=== PATIENT | male | born 1990 | race Caucasian/White ===

== ENCOUNTER 2022-04-29 13:13 | Emergency (ER) | payer SELFPAY ==
--- NOTE | 2022-04-29 13:36 | ECG_ITS ---
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 Measurements Intervals [place] Rate: 109 P: 18 HI: 119 QRS: 11 QRSD: 80 T: 30 QT: 311 QTc: 420 Interpretive Statements SINUS TACHYCARDIA WITH SHORT HI INTERVAL No previous ECG available for comparison Electronically Signed On 04-29-2022 17:44:26 CDT by Fabio Aguilar M.D. [id number]
[2022-04-29 14:12] VITALS: BP 105/72; PULSE 103; RESP 18; TEMP 36.4; O2SAT 96
[2022-04-29 14:24] VITALS: BP 121/88; PULSE 100; RESP 16; TEMP 36.4; O2SAT 98; BMI 31.3
--- NOTE | 2022-04-29 15:22 | W.ED.WEAKNES ---
HPI - Weakness General: Chief complaint: Weakness Stated complaint: Almost passed out, chest pains, N/V Time Seen by Provider: 04/29/22 15:16 History of Present Illness: Patient is a 31-year-old male who comes to the ED with generalized weakness and back pain. Patient says he has been walking for 25 miles and He started in [place] and states that he is trying to get down to [place]. He has not been eating or drinking anything since he started walking. He started feeling weakness nausea and vomiting and is having some low back muscle soreness and pain as well. Denies any other current symptoms. Here in the ED he said his nausea and vomiting is improved and he is able to eat and drink without any episodes of emesis. He still feels a little bit of soreness in his back. Associated symptoms: Reports nausea (Resolved before coming to ED) and vomiting (Resolved before coming to the ED); Denies chest pain, chills, dysuria, fever(s) or headache(s) Review of Systems Const: Reports: fatigue; Denies: fever(s) or chills Eyes: Denies: change in vision or eye discomfort ENMT: Denies: throat pain, odynophagia, nasal discharge or nasal congestion Card: Denies: chest pain, palpitations, edema, swelling of feet/ankles, dyspnea on exertion or orthopnea Resp: Denies: dyspnea, productive cough or non-productive cough GI: Reports: nausea (Resolved before coming to ED) and vomiting (Resolved before coming to the ED); Denies: abdominal pain, diarrhea, constipation or hematochezia : Denies: flank pain, difficulty urinating, dysuria or hematuria Musc: Reports: back pain; Denies: neck pain or extremity swelling Skin/Breast: Denies: rash or new lesions Neuro: Denies: headache(s), numbness in extremities or weakness in extremities [facility] PFSH: Medical History (Updated 04/29/22 @ 22:18 by MATILDA Dolan) No pertinent family history Surgical History (Updated 04/29/22 @ 22:18 by MATILDA Dolan) No pertinent past surgical history Physical Exam Const: COMMON NORMALS: patient oriented x3 HENMT: COMMON NORMALS: normocephalic HEAD & SCALP: normocephalic MOUTH: Normal oral and palatal mucosa present THROAT: posterior oropharynx normal and uvula midline Neck/C-Spine: COMMON NORMALS: supple GENERAL: Yes normal visual inspection Resp: COMMON NORMALS: normal respiratory effort, No retractions, No use of accessory muscles and clear to auscultation bilaterally AUSCULTATION: clear to auscultation bilaterally Cardio: COMMON NORMALS: regular rate, regular rhythm, S1 normal heart sound present, S2 normal heart sound present, No gallops present (Cardio), No clicks present (Cardio), No murmurs present (Cardio) and Peripheral pulses 2+ throughout RATE: regular rate RHYTHM: regular rhythm HEART SOUNDS: S1 normal heart sound present and S2 normal heart sound present PERIPHERAL PULSES: Peripheral pulses 2+ throughout GI: COMMON NORMALS: Normal to inspection, nondistended, normoactive bowel sounds present, Soft to palpation, non-tender and no masses PALPATION: Yes Soft to palpation : COMMON NORMALS: Yes no CVA tenderness BLADDER/KIDNEY EXAM: Yes no CVA tenderness Back/Pelvis: COMMON NORMALS: no CVA tenderness LUMBAR SPINE/LOWER BACK: No lumbar spinal tenderness and Yes paraspinal muscle tenderness Lumbar paraspinal muscle tenderness: bilateral Extremity: COMMON NORMALS: normal to inspection Neuro: COMMON NORMALS: patient oriented x3 GAIT: Yes Normal gait present Skin: GENERAL SKIN EXAM: dry skin Course Vital Signs: Vital signs: Vital Signs Temperature 97.6 F 04/29/22 14:24 Pulse Rate 96 04/29/22 15:27 Respiratory Rate 18 04/29/22 15:27 Blood Pressure 138/84 04/29/22 15:27 Pulse Oximetry 98 04/29/22 15:27 Oxygen Delivery Me thod 04/29/22 15:27 MDM - Weakness Medical Decision Making Patient is a 31-year-old male who comes to the ED with generalized weakness and back pain. Patient says he has been walking for 25 miles and He started in [place] and states that he is trying to get down to [place]. He has not been eating or drinking anything since he started walking. He started feeling weakness nausea and vomiting and is having some low back muscle soreness and pain as well. Denies any chest pain, shortness of breath, nausea or vomiting. He is able to tolerate p.o. food and fluids here in the ED. Vitals are stable. Patient appears nontoxic and in no acute distress or pain. And he does have a little bit of lumbar paraspinal muscle tenderness. Rest of exam is benign. EKG showed sinus tachycardia, [address] segment elevation or depression seen. He was given a dose of IM Toradol here in the ED to help with back pain. He is tolerating p.o. food and fluids and is stable for discharge home. Symptoms of back pain and exhaustion likely due to walking 25 miles. Patient told to follow-up with provider in the next 5 to 7 days for reevaluation. Return to ED precautions given. Patient is to agree with plan. EKG Data EKG 1: EKG interpretation date: 04/29/22 Interpretation: Sinus tachycardia, 109 bpm, no ST segment elevation or depression seen. Discharge Plan Discharge Patient Disposition: Home Clinical Impression: Back pain, Exhaustion Condition: Stable Discharge Orders: Discharge ED (Routine); Ordered 04/29/22 Ordered By: Joe Augustin Discharge Diet: Regular Discharge Activity: Increase activity as tolerated Patient Instructions: Heat Exhaustion (ED) Activity Restrictions/Additional Instructions: Follow-up with medical provider as directed. Take [id number] Tylenol or ibuprofen for any back pain. Make sure you drink plenty of fluids and stay hydrated. Return to the ER or your medical provider if condition worsens. Please read and understand discharge instructions. Thank you for choosing [facility] for your healthcare needs today. Please realize this is an emergency room and that we are providing you with a medical screening exam and this may not be complete and all inclusive of all the testing and or work up that you may need to determine your ailment or severity of your illness. It is very important that you follow up as instructed or that you return to the Emergency Department should you have concerns or if your condition changes or worsens in any way. Coding Level of Care Code ED Nursing [facility] for [facility]g Fwd Exam Comprehensive
[2022-04-29 15:27] VITALS: BP 138/84; PULSE 96; RESP 18; O2SAT 98
--- NOTE | 2022-04-29 15:33 | PC.NURSE ---
Patient give food and water at triage, states he's feeling better.
[2022-04-29] MEDS: ketorolac 60 mg/2 mL INJ IM (15:37)
== END 2022-04-29 15:50 | disposition home or self-care (01) ==
PROVIDERS: Emergency Provider Physician Assistant
DX: M54.9 Dorsalgia, unspecified (principal); R53.83 Other fatigue
CPT/HCPCS: 93005; 96372; 99284; J1885

== ENCOUNTER 2024-10-02 20:00 | Outpatient (CLI) | payer BC, MEDICAID, SELFPAY | END 2024-10-02 20:01 | disposition home or self-care (01) | LOC: SLEEP 23:34 | PROVIDERS: Visit Provider Nurse Practitioner Family | DX: G47.33 Obstructive sleep apnea (adult) (pediatric) (principal); I49.3 Ventricular premature depolarization | CPT/HCPCS: 95811 ==